=== PATIENT | female | born 1995 | race Caucasian/White ===

== ENCOUNTER 2017-11-05 00:57 | Emergency (ER) | payer OTHER ==
[~2017-11-05] VITALS: Ht 160 cm; Wt 46.7 kg
[2017-11-05] MEDS ORDERED: BACTRIM DS TAB1 EACH PO (01:17)
[2017-11-05] MEDS ORDERED: HYDROXYZINE HCL25 M1 PO (01:18)
[2017-11-05] MEDS ORDERED: BENADRYL25 MG PO (02:33)
[2017-11-05] MEDS ORDERED: PREDNISONE50 MG PO (02:33)
[2017-11-05 02:42] LABS: ABSOLUTE NEUTROPHILS 4.5 thou/uL (1.4-8.2); BASOPHILS 0.2 % (0.0-2.0); EOSINOPHILS 6.9 % (0.0-3.0); HEMATOCRIT 38.4 % (37.0-47.0); HEMOGLOBIN 13.2 gm/dL (12.0-15.0); LYMPHOCYTES 13.6 % (24.0-44.0); MCH 29.6 pg (26.0-34.0); MCHC 34.3 g/dL (28.0-37.0); MCV 86.2 fL (80.0-100.0); MONOCYTES 6.8 % (1.0-8.0); PLATELET COUNT 244 thou/uL (150-400); POLYS 72.5 % (36.0-66.0); RBC 4.46 mil/uL (4.20-5.00); RDW 13.4 % (10.5-14.5); WBC 6.3 thou/uL (4.0-11.0)
[2017-11-05 02:48] LABS: CALCIUM 8.4 mg/dL (8.5-10.1); CREATININE 0.8 mg/dL (0.6-1.0); POTASSIUM 3.7 mmol/L (3.5-5.1)
[2017-11-05 03:14] VITALS: BP 104/65
== END 2017-11-05 04:00 | disposition home or self-care (01) ==
LOC: ER 00:57
PROVIDERS: Emergency Medicine
DX: L29.9 Pruritus, unspecified (principal); L53.9 Erythematous condition, unspecified; Z88.1 Allergy status to other antibiotic agents